=== PATIENT | male | born 1965 | race Caucasian/White ===

== ENCOUNTER 2023-12-14 00:05 | Day surgery (SDC) | payer OTHER, SELFPAY ==
[2023-12-01 12:07] VITALS: BMI 29.0
[2023-12-14 08:21] VITALS: BP 120/78; PULSE 72; RESP 19; TEMP 36.2; O2SAT 98
[2023-12-14] MEDS: LACTATED RINGERS 1,000 ML 150 ML IV CONT (08:34)
--- NOTE | 2023-12-14 09:14 | WPDANESEPPF ---
Anes - Initial Pre Proc Eval Procedure: Operation Date: 12/14/23 09:30 Proposed Procedures p Screening Colonoscopy - Nithin Figueroa MD Date/Time: 12/14/23 09:14 Surgeon: Nithin Figueroa MD Pre Op Diagnosis: neoplasm screening Patient Data Age: 58 Gender: M Height: 1.85 m Weight: 99.4 kg Last Vital Signs Temp 97.2 F L 12/14/23 08:21 Pulse 72 12/14/23 08:21 Resp 19 12/14/23 08:21 BP 120/78 12/14/23 08:21 Pulse Ox 98 12/14/23 08:21 O2 Del Method Room Air 12/14/23 08:21 Allergies Allergy/AdvReac Type Severity Reaction Status Date / Time No Known Allergies Allergy Verified 12/14/23 08:20 Home Medications Medication Instructions Recorded Confirmed Type albuterol sulfate 90 mcg/actuation 1 puff inhalation Q4H PRN 04/02/22 12/01/23 History aerosol inhaler Shortness Of Breath fluoxetine 10 mg capsule 10 mg PO DAILY #90 caps 06/28/23 12/01/23 Rx fluticasone propionate 50 1 spray intranasal DAILY 12/01/23 12/01/23 History mcg/actuation nasal spray,suspension (Flonase Allergy Relief) Patient hx anesthesia problems: none Family hx anesthesia problems: none Results Review: All pre-operative results and documents have been reviewed as part of the pre-operative evaluation. [facility] Past Medical History Medical History (Updated 08/04/23 @ 09:12 by Elysia Vazquez MD) Asthma Celiac disease Chronic left shoulder pain Chronic low back pain Claustrophobia Dyslipidemia [place]OD[place] (generalized anxiety disorder) Numbness and tingling of both feet Tendinitis of left rotator cuff Surgical History Surgical History (Updated 06/02/23 @ 11:17 by Kemi Sadler) History of repair of hiatal hernia Family History Family History Grandparent Family history of arthritis Mother Family history of multiple sclerosis Father Family history of lung cancer Other Asthma Social History Social History Social History: Caffeine-daily Smoking status: Never smoker Tobacco type: cigarettes Second hand tobacco smoke exposure: No Smoking end date: 08/16/06 Alcohol intake: current Drinks per week: 7 Alcohol use details: DRINKS Substance use: never Substance use type: does not use Lack of Transportation: No Lack of Food: Never True Current Housing: I Have Housing Concerned About Future Housing: No Difficulty Paying Gas/Electric Bills: No Difficulty Paying for Meds: No Currently Unemployed: No Education: Bachelor's Degree Difficulty w/ Childcare or Family Care: No Living arrangements: with family Occupation/Education: occupation Gender identity (if verbalized by the patient): Male Sexual Orientation (if Verbalized by the Patient): Straight or Heterosexual Spiritual care concerns: No Agree to blood products: Yes Anes - Eval Final PreProcedure Day of Procedure 12/14/23 09:14 Patient weight: normal Heart: regular rate and rhythm Lungs: clear to auscultation Neurological: alert and oriented Last oral intake: >/= 8 hours Emergent: no Anesthetic plan: proceed Results Review: All pre-operative results and documents have been reviewed as part of the pre-operative evaluation. Informed Consent: The patient's anesthetic plan and its attendant risks and benefits were discussed with the patient/family/POA. Questions were solicited and answers provided to the satisfaction of the patient/family/POA.
--- NOTE | 2023-12-14 09:41 | PM.HPGS ---
History of Present Illness History of Present Illness Consent: Risks, benefits, and alternatives have been discussed and questions answered. Patient agrees to proceed with procedure. Chief complaint: neoplasm screening Narrative: Riaz Gomez is a 58 year old male here for screening colonoscopy, last one 7 years ago Review of Systems Review of Systems: All systems reviewed & are unremarkable except as noted in HPI and below PMFSH Past Medical History Medical History (Updated 12/14/23 @ 09:42 by Nithin Figueroa MD) Asthma Celiac disease Chronic left shoulder pain Chronic low back pain Claustrophobia Colon cancer screening Dyslipidemia [place] (generalized anxiety disorder) Numbness and tingling of both feet Tendinitis of left rotator cuff Surgical History Surgical History (Updated 06/02/23 @ 11:17 by Kemi Sadler) History of repair of hiatal hernia Family History Family History Grandparent Family history of arthritis Mother Family history of multiple sclerosis Father Family history of lung cancer Other Asthma Social History Social History Social History: Caffeine-daily Smoking status: Never smoker Tobacco type: cigarettes Second hand tobacco smoke exposure: No Smoking end date: 08/16/06 Alcohol intake: current Drinks per week: 7 Alcohol use details: DRINKS Substance use: never Substance use type: does not use Lack of Transportation: No Lack of Food: Never True Current Housing: I Have Housing Concerned About Future Housing: No Difficulty Paying Gas/Electric Bills: No Difficulty Paying for Meds: No Currently Unemployed: No Education: Bachelor's Degree Difficulty w/ Childcare or Family Care: No Living arrangements: with family Occupation/Education: occupation Gender identity (if verbalized by the patient): Male Sexual Orientation (if Verbalized by the Patient): Straight or Heterosexual Spiritual care concerns: No Agree to blood products: Yes Meds Home Medications and Allergies Home Medications Medication Instructions Recorded Confirmed Type albuterol sulfate 90 mcg/actuation 1 puff inhalation Q4H PRN 04/02/22 12/01/23 History aerosol inhaler Shortness Of Breath fluoxetine 10 mg capsule 10 mg PO DAILY #90 caps 06/28/23 12/01/23 Rx fluticasone propionate 50 1 spray intranasal DAILY 12/01/23 12/01/23 History mcg/actuation nasal spray,suspension (Flonase Allergy Relief) Allergies Allergy/AdvReac Type Severity Reaction Status Date / Time No Known Allergies Allergy Verified 12/14/23 08:20 Vital Signs Vital Signs - 24 hr 12/14/23 08:21 Temperature 97.2 F L Pulse Rate 72 Respiratory Rate 19 Blood Pressure 120/78 Pulse Oximetry 98 Oxygen Delivery Room Air Exam Const: General: comfortable and no acute distress HENMT: Face/Nose/Sinus: Normal nares present Eyes: General: appearance normal, both eyes and all related structures Neck: Neck: no JVD Resp: Auscultation: clear to auscultation bilaterally Cardio: Rate: regular rate Rhythm: regular rhythm GI: Inspection: non-distended GI Palp: Yes Soft to palpation Skin: General skin exam: normal color Neuro: General: gait normal Speech: normal speech Extrem: General: normal to inspection Psych: Mental Status: mental status grossly normal Assessment and Plan Assessment and plan (1) Colon cancer screening: Code(s): Z12.11 - Encounter for screening for malignant neoplasm of colon Status: Acute Assessment and Plan: colonoscopy
[2023-12-14 09:57] VITALS: BP 96/61; PULSE 62; RESP 17; O2SAT 97
[2023-12-14 10:07] VITALS: BP 104/68; PULSE 64; RESP 18; O2SAT 97
[2023-12-14 10:17] VITALS: BP 113/74; PULSE 65; RESP 20; O2SAT 99
== END 2023-12-14 10:33 | disposition home or self-care (01) ==
PROVIDERS: PCP Family Medicine; Visit Provider Internal Medicine Gastroenterology
PROC: 0DJD8ZZ Inspection of Lower Intestinal Tract, Via Natural or Artificial Opening Endoscopic (ICD-10-PCS; CPT 45378; principal; 2023-12-14 09:30)
DX: Z12.11 Encounter for screening for malignant neoplasm of colon (principal); D12.3 Benign neoplasm of transverse colon; K64.8 Other hemorrhoids; J45.909 Unspecified asthma, uncomplicated; E78.5 Hyperlipidemia, unspecified; F41.1 Generalized anxiety disorder; Z79.51 Long term (current) use of inhaled steroids; Z87.891 Personal history of nicotine dependence
CPT/HCPCS: 45380; 88305; J2704; J7120